=== PATIENT | female | born 1965 | race Caucasian/White ===

== ENCOUNTER → 2017-10-02 | Outpatient (CLI) | payer OTHER ==
[~2017-10-02] VITALS: Ht 160 cm; Wt 50.3 kg
[~2017-10-02] MED LIST: MULTIVITAMINS PO; TURMERIC500 M2 PO
--- NOTE | ~2017-10-02 | P ---
[facility] [place] [address] PROCEDURE REPORT Name: RAFAELWINSTON L Room #: REG [facility]#: [id number] Admission: 10/02/17 Attend Phys: Alex Woodall MD Discharge: Date of : 67 Report #: [id number] THIS REPORT FOR: //name// CC: DEANA Woodall OUTPATIENT COLONOSCOPY REPORT PREOPERATIVE DIAGNOSIS: Average-risk screening colonoscopy. POSTOPERATIVE DIAGNOSIS: Average-risk screening colonoscopy. MEDICATIONS: Deep sedation with propofol per anesthesia. SPECIMEN: None. ESTIMATED BLOOD LOSS: None. PROCEDURE: Colonoscopy to cecum and then terminal ileum. FINDINGS: Prior to propofol sedation, procedure of colonoscopy discussed with the patient as well as potential risks and its complications. She indicates she understands and desires to proceed. DESCRIPTION OF PROCEDURE: With the patient in the left lateral decubitus position, digital examination was completed, which revealed no abnormalities. Subsequently, the [employer] video colonoscope was introduced in the rectum and advanced under direct vision to the cecum. It was done with some difficulty as she had a difficult sigmoid colon to traverse. However, with splint to the abdomen, we were able to pass the scope through the sigmoid colon. Once we passed the sigmoid colon, the scope advanced easily into the proximal colon and the cecum. Cecum was identified by the ileocecal valve and the appendiceal orifice. I was able to advance the scope across the ileocecal valve and visualize the distal segment of the terminal ileum, which was noted to be unremarkable. At that point, the scope was withdrawn and careful circumferential views obtained, including retroflexing the scope in the ascending colon. As the scope was withdrawn, the prep was noted to be good. The mucosa was within normal limits. Normal vascular pattern and normal light reflex. She was noted to have a generously dilated proximal colon. However, there was no evidence of obstruction. No neoplastic lesions were seen. No polyps were seen on this examination. Examination of the sigmoid colon revealed a normal lumen. However, it was somewhat tortuous. Again, no other abnormalities were seen. The scope was withdrawn in the rectum. No abnormalities were seen. Upon retroflexion, no abnormalities were seen. Scope was withdrawn. The patient tolerated the procedure well. [address] [address] PROCEDURE REPORT Name: RAFAELWINSTON L Room #: REG [facility].#: [id number] Admission: 10/02/17 Attend Phys: Alex Woodall MD Discharge: Date of : 67 Report #: [id number] CONDITION OF THE PATIENT UPON DISCHARGE: Following procedure, the patient drowsy, arousable and conversant. She will be discharged to home when fully ambulatory. INSTRUCTIONS TO THE PATIENT AND FAMILY AT THE TIME OF DISCHARGE: No neoplastic lesions were seen today. Advised followup colon exam in 10 years for average risk or sooner if some problems should develop. The patient does have a somewhat dilated colon and some tortuosity in the sigmoid colon. We will discuss with her considerations with regards to constipation. If she does have constipation, use of fiber and/or product such as MiraLax would be reasonable. This was the patient's first colonoscopy. Withdrawal time from the cecum was 10 minutes 33 seconds. <ELECTRONICALLY SIGNED> By: Alex Woodall MD 10/14/17 1617 0910 [id number] Alex Woodall MD /nt
== END | disposition home or self-care (01) ==
LOC: GI 07:15
DX: Z12.11 Encounter for screening for malignant neoplasm of colon (principal); Z98.890 Other specified postprocedural states; Z88.8 Allergy status to other drugs, medicaments and biological substances
CPT/HCPCS: 62110